=== PATIENT | male | born 1960 | race Caucasian/White ===

== ENCOUNTER → 2019-01-19 | Day surgery (SDC) | payer OTHER ==
[~2019-01-19] MED LIST: ALLERGY SHOT; AMBIEN CR12.5 MG PO; AMBIEN10 MG PO; AMBIEN5 MG PO; CENTRUM SILVER1 EAC3 PO; DUEXIS 800-26.1 EACH PO; ESIDRIX25 MG PO; FENTANYL CITRATE/PF 100MCG/2 ML INJ ONE; FIBER PO; FUROSEMIDE40 MG PO; GLUCOSAMINE &1 EAC1 PO; HYOSCYAMINE 0.125 MG TAB ONE; Hydrochlorothiazide PO; KEFLEX500 MG PO; LISINOPRIL40 MG PO; MELOXICAM15 MG PO; MELOXICAM7.5 MG PO; METFORMIN HCL500 MG PO; MIDAZOLAM HCL 2 MG/2 ML VIAL ONE; PROBIOTIC & AC1 EACH PO; PROPOFOL IV EMULSION 10 MG/ML 50 ML VIAL ONE; PROTONIX20 MG PO; RANITIDINE HCL300 M1 PO; ROSUVASTATIN PO; SAW PALMETTO PO; SAW PALMETTO450 MG PO; ZANTAC300 MG PO; ZESTRIL20 MG PO; ZINC50 M1 PO; [UNRECOGNIZED DRUG - OTHER] PO; [UNRECOGNIZED DRUG - OTHER] PO; [UNRECOGNIZED DRUG - OTHER] PO
--- OUTSIDE RECORDS SUMMARY | 2019-01-19 08:04 | XMS REPORT | Clinical Summary ---
Author Author [facility] Organization [facility] Address Unknown Phone Unavailable Care Team Providers Care English Drawer Name Role Phone Jina Seymour MD PCP Allergies No Known Allergies Medications End Date Status Medication Sig Dispensed Refills Start Date Active zolpidem CR (AMBIEN CR) 0 12.5 MG CR tablet 9 Active rosuvastatin (CRESTOR) 5 Take 5 mg by 3 MG tablet mouth daily. 9 Active potassium chloride 0 (K-DUR) 20 MEQ CR tablet 9 Active pantoprazole (PROTONIX) 0 40 MG EC tablet 9 Active metoprolol tartrate 0 (LOPRESSOR) 50 mg tablet 9 Active metFORMIN (GLUCOPHAGE) Take 500 mg 3 500 mg tablet by mouth 2 9 (two) times a day. Active meloxicam (MOBIC) 15 mg 0 tablet 9 Active lisinopril 0 (PRINIVIL,ZESTRIL) 20 mg 9 tablet Active hydroCHLOROthiazide 0 (HYDRODIURIL) 25 MG 9 tablet Active furosemide (LASIX) 40 mg 0 tablet 9 Active DYMISTA 137-50 mcg/spray SPRAY 1 SPRAY 3 spray,non-aerosol EACH NOSTRIL 9 TWICE A DAY 12/27/2018 Discontinued fluticasone propionate 0 (FLONASE) 50 9 mcg/actuation nasal spray Active Problems Problem Noted Date Impingement syndrome of right shoulder 12/27/2018 Encounters Care Team Description Date Type Specialty Jonathan Quinn PA-C 01/11/2019 Telephone Orthopedic Surgery Chevy Diaz MD Impingement syndrome of right shoulder (Primary Dx); Pain 12/27/2018 Office Visit Orthopedic Surgery after 01/18/2018 Social History Date Tobacco Use Types Packs/Day Years Used Never Smoker Smokeless Tobacco: Never Used Alcohol Use Drinks/Week oz/Week Comments Never Alcohol Habits Answer Date Recorded How often do you have a drink containing alcohol? Never 12/27/2018 How many drinks containing alcohol do you have on Not asked a typical day when you are drinking? How often do you have six or more drinks on one Not asked occasion? Sex Assigned at Date Recorded Not on file Industry Job Start Date Occupation Not on file Not on file Not on file Travel End Travel History Travel Start No recent travel history available. Last Filed Vital Signs Time Taken Vital Sign Reading - Blood Pressure - - Pulse - - Temperature - - Respiratory Rate - - Oxygen Saturation - - Inhaled Oxygen - Concentration 12/27/2018 2:09 PM CDT Weight 113 kg (250 lb) 12/27/2018 2:09 PM CDT Height 193 cm (6' 4") 12/27/2018 2:09 PM CDT Body Mass Index 30.43 Plan of Treatment Health Maintenance Due Date Last Done Comments COLONOSCOPY SCREENING 2010 SHINGLES VACCINES (#1) 2010 INFLUENZA VACCINE 02/03/2019 Procedures Comments Procedure Name Priority Date/Time Associated Diagnosis MRI SHOULDER WO CONTRAST Routine 01/07/2019 Impingement syndrome of RIGHT 6:15 PM CDT right shoulder XR SHOULDER 2+ VW RIGHT Routine 12/27/2018 Pain 3:03 PM CDT after 01/18/2018 Results * MRI Shoulder Wo Contrast Right (01/07/2019 6:15 PM CDT) Specimen Narrative Performed At [facility] EXAMINATION:MRI SHOULDER WO CONTRAST RIGHT CLINICAL HISTORY:M75.41 Impingement syndrome of right shoulder, Shoulder painrotator cuff tear impingement suspected TECHNIQUE:Multiplanar multisequence MR imaging of the shoulder was performed without contrast. COMPARISON:X-rays dated 12/27/2018 FINDINGS: 1. Rotator cuff: Minimal calcific tendinitis of the rotator cuff is noted. There is a small closed interstitial delaminating tear of the posterior status tendon best seen on series 6 image 13 at the tuberosity footprint low-grade tendinosis of the superior fibers subscapularis tendon. Teres minor tendon intact. No rotator cuff muscle atrophy, edema or strains. 2. Bursa: No subacromail/subdeltoid bursitis. 3. Biceps tendon: Mild tendinosis of the junction of the horizontal and vertical segments of the biceps tendon. 4. Labrum: Chronic superior labral tear best seen on series 6 images 12 and 13 posterior to the biceps anchor. There is rounding and deformity of the posterior glenoid with posterior labral enlargement that may represent a dysplastic glenoid and compensatory hypertrophy or the sequelae of old trauma. Increased glenoid retroversion. Chronic anterior and for labral tear with small para labral cysts best seen on series 4 images 21 through 26. Moderate thickening of the anterior band and axillary pouch likely stress hypertrophy. 5. AC joint: Intact. 6. Glenohumeral joint: Increased glenoid retroversion with flattening and posterior downsloping of the posterior glenoid that may be secondary to glenoid dysplasia or sequelae of old trauma in the distant past. Posterior decentering of the humeral head. Correlate for posterior instability. 7. Articular cartilage: Articular cartilage intact. 8. Joint Fluid:No joint effusion. Physiologic joint fluid. 9. Bone marrow: Small interosseous ganglion cysts in the bicipital groove and posterior greater tuberosity. Subtle edema lesser tuberosity at the insertion of the subscapularis tendon. This can be associated with subscapularis impingement. 10. Soft tissues: No mass, fluid collection or hematoma. IMPRESSION: 1. 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 2.Posterior decentering of the humeral head. Correlate for posterior instability. Prominent thickening of the anterior band of the inferior glenohumeral ligament and axillary pouch likely stress hypertrophy. 3.Chronic SLAP tear and chronic tear of the anterior inferior labrum with small para labral cysts. 4.Minimal calcific tendinitis of the rotator cuff. Small closed interstitial delaminating tear at the tuberosity footprint. No full-thickness rotator cuff tears. 5.Mild intra-articular biceps tendinosis. [facility]-[id number] Procedure Note [facility], Radiology Results - 01/07/2019 6:53 PM CDT EXAMINATION: MRI SHOULDER WO CONTRAST RIGHT CLINICAL HISTORY: M75.41 Impingement syndrome of right shoulder, Shoulder pain rotator cuff tear impingement suspected TECHNIQUE: Multiplanar multisequence MR imaging of the shoulder was performed without contrast. COMPARISON: X-rays dated 12/27/2018 FINDINGS: 1. Rotator cuff: Minimal calcific tendinitis of the rotator cuff is noted. There is a small closed interstitial delaminating tear of the posterior status tendon best seen on series 6 image 13 at the tuberosity footprint low-grade tendinosis of the superior fibers subscapularis tendon. Teres minor tendon intact. No rotator cuff muscle atrophy, edema or strains. 2. Bursa: No subacromail/subdeltoid bursitis. 3. Biceps tendon: Mild tendinosis of the junction of the horizontal and vertical segments of the biceps tendon. 4. Labrum: Chronic superior labral tear best seen on series 6 images 12 and 13 posterior to the biceps anchor. There is rounding and deformity of the posterior glenoid with posterior labral enlargement that may represent a dysplastic glenoid and compensatory hypertrophy or the sequelae of old trauma. Increased glenoid retroversion. Chronic anterior and for labral tear with small para labral cysts best seen on series 4 images 21 through 26. Moderate thickening of the anterior band and axillary pouch likely stress hypertrophy. 5. AC joint: Intact. 6. Glenohumeral joint: Increased glenoid retroversion with flattening and posterior downsloping of the posterior glenoid that may be secondary to glenoid dysplasia or sequelae of old trauma in the distant past. Posterior decentering of the humeral head. Correlate for posterior instability. 7. Articular cartilage: Articular cartilage intact. 8. Joint Fluid:No joint effusion. Physiologic joint fluid. 9. Bone marrow: Small interosseous ganglion cysts in the bicipital groove and posterior greater tuberosity. Subtle edema lesser tuberosity at the insertion of the subscapularis tendon. This can be associated with subscapularis impingement. 10. Soft tissues: No mass, fluid collection or hematoma. IMPRESSION: 1. 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 2. Posterior decentering of the humeral head. Correlate for posterior instability. Prominent thickening of the anterior band of the inferior glenohumeral ligament and axillary pouch likely stress hypertrophy. 3. Chronic SLAP tear and chronic tear of the anterior inferior labrum with small para labral cysts. 4. Minimal calcific tendinitis of the rotator cuff. Small closed interstitial delaminating tear at the tuberosity footprint. No full-thickness rotator cuff tears. 5. Mild intra-articular biceps tendinosis. [facility]-[id number] Performing Organization Address City/State/Zipcode Phone Number [facility] [address] [place] [address] * XR Shoulder 2+ Vw Right (12/27/2018 3:03 PM CDT) Specimen Narrative Performed At [facility] 3 views today reviewed with the patient show a type II and a half acromium, slight flattening of the posterior glenoid, no significant spur formation on the glenohumeral joint. Performing Organization Address City/State/Zipcode Phone Number [facility] [address] [place] [address] after 01/18/2018 Insurance Type Payer Benefit Subscriber ID Effective Phone Address Plan / Dates Group HMO/PPO [facility] xxxxxxxxx [id number] THCARE resent CHOICE/CHO ICE + Advance Directives Patient has advance care planning documents on file. For more information, murali e contact: Sriram Guillen [address] [place] [address]
[2019-01-19 12:15] VITALS: BP 124/50
--- NOTE | 2019-01-19 12:31 | Operative Report ---
DATE OF PROCEDURE: 01/19/2019 SURGEON: Jonathan Seymour MD PROCEDURES: 1. Esophagogastroduodenoscopy with biopsies. 2. Colonoscopy with polypectomy. INDICATION FOR EGD: Acid reflux. INDICATIONS FOR COLONOSCOPY: Surveillance colonoscopy, personal history of colon polyps. MEDICATION: The patient was done under MAC, please see anesthesiologist's note. PROCEDURE IN DETAIL: With the patient in left lateral decubitus position, a flexible fiberoptic Olympus gastroscope was introduced into the esophagus under direct visualization without any difficulty. There was some patchy erythema noted in the distal esophagus. The scope was then advanced with ease into the stomach. Mucosa overlying the antrum and the body revealed some diffuse intense erythema and moderate edema, and biopsies were obtained and sent to stain for H pylori. The pylorus was of normal contour and shape, it was intubated with ease and the scope was advanced all the way to the second portion of the duodenum. The scope was then withdrawn slowly. Mucosa overlying the proximal second portion and the duodenal bulb, they were grossly within normal limits and biopsies were obtained to rule out sprue. The scope was then withdrawn back into the stomach and retroflexed and mucosa overlying the fundus and the cardia appeared to be within normal limits. The scope was then straightened out, it was subsequently withdrawn. The patient tolerated the procedure well. IMPRESSION: 1. Distal esophagitis, mild. 2. Gastritis, biopsied, biopsies sent to stain for Helicobacter pylori. 3. Rule out sprue. PLAN: Follow up histology. Initiate Protonix 40 mg one p.o. q.a.m. a.c. The patient was then turned around and after adequate lubrication of the anal canal, a flexible fiberoptic Olympus colonoscope was inserted into the rectum with ease and advanced all the way to the cecum. It was then withdrawn slowly, mucosa overlying the cecum, ascending colon, and transverse colon appeared to be within normal limits. One polyp was hot biopsied from the descending colon. The sigmoid appeared to be within normal limits. One polyp was hot biopsied from the rectum. The scope was then retroflexed into the distal rectum and small internal hemorrhoids were noted, none of which was actively bleeding. The scope was then straightened out, it was subsequently withdrawn. The patient tolerated the procedure well. IMPRESSION: 1. Descending colon polyp, hot biopsied. 2. Rectal polyp, hot biopsied. 3. Internal hemorrhoids, none actively bleeding. PLAN: Followup histology. Initiate high-fiber, low-fat diet. Initiate high-fiber supplement. The patient might benefit from a followup colonoscopy in 5 years. MD KEITH Thurman/WILFRED /[id number] cc: Ravi Seymour MD
== END | disposition home or self-care (01) ==
LOC: OR 07:55
PROVIDERS: ATTEND Internal Medicine Gastroenterology
DX: Z12.11 Encounter for screening for malignant neoplasm of colon (principal); K63.5 Polyp of colon; K62.1 Rectal polyp; K29.50 Unspecified chronic gastritis without bleeding; K20.9 Esophagitis, unspecified; K21.9 Gastro-esophageal reflux disease without esophagitis; L29.0 Pruritus ani; K58.9 Irritable bowel syndrome, unspecified; K64.8 Other hemorrhoids; E11.9 Type 2 diabetes mellitus without complications; I10 Essential (primary) hypertension; R49.9 Unspecified voice and resonance disorder; R42 Dizziness and giddiness; G47.33 Obstructive sleep apnea (adult) (pediatric); E78.5 Hyperlipidemia, unspecified; F95.9 Tic disorder, unspecified; I45.10 Unspecified right bundle-branch block; Z01.810 Encounter for preprocedural cardiovascular examination; Z79.84 Long term (current) use of oral hypoglycemic drugs; Z68.41 Body mass index [BMI] 40.0-44.9, adult
CPT/HCPCS: 36415; 43239; 45384; 82948; 93005; J2250; J2704; J3010

== ENCOUNTER 2019-12-29 06:24 | Observation (INO) | payer OTHER ==
[2019-12-26 13:19] LABS: ALANINE AMINOTRANSFERASE 26 IU/L (0-55); ALBUMIN 3.9 g/dL (3.5-5.0); ALBUMIN/GLOBULIN RATIO 1.2 (0.8-2.0); ALKALINE PHOSPHATASE 61 IU/L (40-150); ANION GAP 10.6 mmol/L (8-16); BASOPHILS % 0.4 % (0.0-1.0); BLOOD UREA NITROGEN 20 mg/dL (7-26); BUN/CREATININE RATIO 21 (6-25); CALCIUM 9.6 mg/dL (8.4-10.2); CARBON DIOXIDE 30 mmol/L (22-29); CHLORIDE 107 mmol/L (98-107); CREATININE, SERUM 0.95 mg/dL (0.72-1.25); EOSINOPHILS # (AUTO) 0.2 (0.0-0.4); EOSINOPHILS % 3.5 % (0.0-6.0); EST GLOMERULAR FILTRATION RATE > 60 ML/MIN (60-); GLUCOSE 164 mg/dL (74-118); HEMATOCRIT 47.1 % (38.2-49.6); HEMOGLOBIN 15.4 g/dL (14.0-18.0); LYMPHOCYTES # (AUTO) 1.6 (1.0-3.2); LYMPHOCYTES % 28.7 % (18.0-39.1); MEAN CORPUSCULAR HEMOGLOBIN 30.6 pg (28-32); MEAN CORPUSCULAR HGB CONC 32.7 g/dL (31-35); MEAN CORPUSCULAR VOLUME 93.6 fL (81-99); MONOCYTES # (AUTO) 0.6 (0.2-0.8); MONOCYTES % 10.9 % (4.4-11.3); NEUTROPHILS % 56.3 % (38.7-80.0); PLATELET COUNT 277 x10e3/uL (140-360); POTASSIUM 4.6 mmol/L (3.5-5.1); RED BLOOD COUNT 5.03 x10e6/uL (4.3-5.7); RED CELL DISTRIBUTION WIDTH 12.8 % (11.7-14.4); SODIUM 143 mmol/L (136-145)
--- NOTE | 2019-12-26 13:29 | Diagnostic Imaging Report ---
X-ray chest PA and lateral Comparison: 04/16/2015 History: Preop Findings: Central airways unremarkable. Cardiomediastinal silhouette is normal. No pleural effusion. No pneumothorax. No focal lung disease. Visualized skeletal structures unremarkable. Upper abdomen unremarkable. Impression: Normal exam. Signed by: Murphy Glass MD on 12/26/2019 1:26 PM
[~2019-12-29] VITALS: Ht 193 cm; Wt 125.2 kg
[~2019-12-29 06:24] MED LIST changes: +ATORVASTATIN CA10 MG PO; -FENTANYL CITRATE/PF 100MCG/2 ML INJ ONE; -HYOSCYAMINE 0.125 MG TAB ONE; -MIDAZOLAM HCL 2 MG/2 ML VIAL ONE; -PROPOFOL IV EMULSION 10 MG/ML 50 ML VIAL ONE
[2019-12-29] MEDS ORDERED: CEFAZOLIN SOD 1 GM/NS 50ML 100 ML IV ONE (08:10)
[2019-12-29] MEDS ORDERED: IOPAMIDOL 300MG/ML 50ML INFUS..BTL IV ONE (08:41)
[2019-12-29] MEDS ORDERED: B&O 60MG R/S 60 MG SUPP PR ONE (10:31)
[2019-12-29] MEDS ORDERED: FENTANYL CITRATE/PF 100MCG/2 ML INJ ONE ×2 (10:59→19:20)
[2019-12-29] MEDS ORDERED: LISINOPRIL 20 MG TAB PO PRN (12:00)
[2019-12-29] MEDS ORDERED: B&O 60MG R/S 60 MG SUPP PR PRN (12:00)
[2019-12-29] MEDS ORDERED: ZOLPIDEM TARTRATE 10 MG TAB PO PRN (12:00)
[2019-12-29] MEDS ORDERED: DEXTROSE 50% SYRINGE 50 ML IV PRN (12:00)
--- NOTE | 2019-12-29 12:07 | Operative Report ---
DATE OF PROCEDURE: 12/29/2019 SURGEON: Topher Ingram MD PREOPERATIVE DIAGNOSIS: Bladder neck outlet obstruction, benign prostatic hyperplasia. POSTOPERATIVE DIAGNOSIS: Bladder neck outlet obstruction, benign prostatic hyperplasia plus multiple small bladder stone and concretions. ANESTHESIOLOGIST: Andrea Recinos MD ANESTHESIA: General. FINDINGS: The patient had a urethral stenosis deep bulbar dilated to a 28 Marichuy sound. A grade 3 trabeculation of the bladder with cellules and saccules. He had a large middle bar with an intravesical component. Once the intravesical component was cut, it was noted that the patient had small, little tiny stones and concretions present. Electrovaporization of the tissues was removed, as well as a TURP. PROCEDURE IN DETAIL: With the patient under satisfactory general anesthesia, the patient was placed in the supine position on the operating table. Legs were placed on stirrups. Genitalia was then prepped with Betadine soap and solution and draped in usual manner. A 22-Kiswahili cystourethroscope was passed per urethra and stenosis of the deep bulbar urethra was found. The cystoscope was then removed and the dilation of the urethra was done using Marichuy sounds from size 12 to size 28. Cystoscopy was then performed. Findings are dictated above. At this point, the resectoscope was placed in, continuous flow Olympus bipolar energy was used. I used the loop electrode 1st to resect the middle bar and then the posterior tissue to the verumontanum, did not go through with the verumontanum. Lateral tissues were then done much the same way. At this point, I changed over to the button electrode and I electrovaporated the remaining tissue anteriorly and I obtained good hemostasis. At this point, the [email or web address] evacuator was used to remove all prostatic chips from the bladder. I rechecked with the scope the bladder, made sure there were no pieces of tissue or chips of prostate within the bladder itself. There were none. Also observed that the trigone was normal and both ureteral orifices were in normal position. Again, I checked for hemostasis. There were a couple of bleeders of the bladder neck, which I coagulated. At this point, the instruments were removed. A 22-Kiswahili Mehta catheter was passed per urethra and left indwelling in the bladder. I irrigated the bladder till the return was clear. There were no clots. B and O suppository was placed in the rectum. The patient was taken to recovery room in satisfactory condition. DISCHARGE INSTRUCTIONS: The patient was kept overnight for observation. If the patient met discharge criteria next day, he would be sent home on tramadol for pain, Mehta catheter and Keflex antibiotic to take twice daily. He will be seen in my office on followup in 4 days. He was instructed to take all his medications, aspirin, and meloxicam. If the patient had to stay an extra day, a separate discharge summary will be dictated to explain the reason why the patient stayed an extra day. MD BLANCA Campa/[facility] /[id number]
[2019-12-29 12:35] VITALS: BP 120/82
[2019-12-29] MEDS: LACTATED RINGER'S 1,000 ML INJ SCH ×2 (12:49→22:39)
[2019-12-29] MEDS ORDERED: TRAMADOL HCL 50 MG TAB PO PRN (13:00)
[2019-12-29] MEDS: INSULIN REGULAR, HUMAN 100 UNIT/1 ML 3ML VIAL SQ SCH ×2 (16:30→21:00)
[2019-12-29 17:12] VITALS: BP 130/83
[2019-12-29] MEDS: FUROSEMIDE 40 MG TAB PO SCH (18:09)
--- NOTE | 2019-12-29 19:04 | NUR ---
shift report given to oncoming nurse pt in stable condition, denies pain at this time, call light in reach will continue to monitor
[2019-12-29] MEDS ORDERED: MIDAZOLAM HCL 2 MG/2 ML VIAL ONE (19:20)
[2019-12-29] MEDS ORDERED: ACETAMINOPHEN 1000 MG/100 ML IV ONE (19:33)
[2019-12-29] MEDS ORDERED: ETOMIDATE 2 MG/ML 10 ML INJ IV ONE (19:33)
[2019-12-29] MEDS ORDERED: ONDANSETRON HCL INJ 2MG/ML 2ML 2 MG/ML VIAL ONE (19:33)
[2019-12-29] MEDS ORDERED: LIDOCAINE HCL 2% LOCAL INJ 5 ML SDV VIAL INJ ONE (19:33)
[2019-12-29] MEDS ORDERED: DEXAMETHASONE SOD PHOS INJ 4 MG/ML VIAL ONE (19:33)
[2019-12-29] MEDS ORDERED: SEVOFLURANE INHAL SOLN 250 ML PEN BTL ONE (19:33)
[2019-12-29 20:00] VITALS: BP 130/73
[2019-12-29] MEDS ORDERED: ATORVASTATIN 10 MG TAB PO SCH (21:00)
[2019-12-29 21:49] VITALS: BP 130/73
[2019-12-30] VITALS (8 sets, daily range): BP systolic 125–135; BP diastolic 74–86
[2019-12-30] MEDS: LACTATED RINGER'S 1,000 ML INJ SCH ×2 (06:09→15:56)
--- NOTE | 2019-12-30 07:09 | NUR ---
report given to day nurse. patient is resting comfortably in the bed. bed is in the lowest position and call light is within reach.
[2019-12-30] MEDS: INSULIN REGULAR, HUMAN 100 UNIT/1 ML 3ML VIAL SQ SCH ×2 (07:30→11:30)
[2019-12-30] MEDS ORDERED: PANTOPRAZOLE SOD 40 MG TABEC PO SCH (07:30)
[2019-12-30 08:43] LABS: BASOPHILS % 0.2 % (0.0-1.0); EOSINOPHILS # (AUTO) 0.1 (0.0-0.4); EOSINOPHILS % 0.9 % (0.0-6.0); HEMATOCRIT 39.9 % (38.2-49.6); HEMOGLOBIN 13.2 g/dL (14.0-18.0); LYMPHOCYTES # (AUTO) 2.6 (1.0-3.2); LYMPHOCYTES % 26.8 % (18.0-39.1); MEAN CORPUSCULAR HEMOGLOBIN 31.1 pg (28-32); MEAN CORPUSCULAR HGB CONC 33.1 g/dL (31-35); MEAN CORPUSCULAR VOLUME 94.1 fL (81-99); MONOCYTES # (AUTO) 0.8 (0.2-0.8); MONOCYTES % 8.7 % (4.4-11.3); NEUTROPHILS % 63.2 % (38.7-80.0); PLATELET COUNT 258 x10e3/uL (140-360); RED BLOOD COUNT 4.24 x10e6/uL (4.3-5.7); RED CELL DISTRIBUTION WIDTH 12.7 % (11.7-14.4)
[2019-12-30] MEDS: FUROSEMIDE 40 MG TAB PO SCH (09:00)
[2019-12-30] MEDS ORDERED: [UNRECOGNIZED DRUG - OTHER] PO SCH (09:00)
[2019-12-30] MEDS ORDERED: METFORMIN HCL 500 MG TAB PO SCH (09:00)
[2019-12-30 09:06] LABS: ALANINE AMINOTRANSFERASE 20 IU/L (0-55); ALBUMIN 3.5 g/dL (3.5-5.0); ALBUMIN/GLOBULIN RATIO 1.3 (0.8-2.0); ALKALINE PHOSPHATASE 54 IU/L (40-150); BLOOD UREA NITROGEN 19 mg/dL (7-26); BUN/CREATININE RATIO 21 (6-25); CALCIUM 8.7 mg/dL (8.4-10.2); CARBON DIOXIDE 29 mmol/L (22-29); CHLORIDE 103 mmol/L (98-107); CREATININE, SERUM 0.91 mg/dL (0.72-1.25); EST GLOMERULAR FILTRATION RATE > 60 ML/MIN (60-); GLUCOSE 102 mg/dL (74-118); SODIUM 139 mmol/L (136-145)
--- NOTE | 2019-12-30 09:50 | NUR ---
Pt. expressed no spiritual or emotional concerns at this time. Pt's at bedside. [employer] provided hospitality and information on how to reach aquatic ecologist, if needed. No need to follow at this time. VENU SOLIS [facility] Spiritual Care Department O: [phone]
[2019-12-30] MEDS ORDERED: B&O 60MG R/S 60 MG SUPP PR ONE (12:14)
[2019-12-30] MEDS ORDERED: SEVOFLURANE INHAL SOLN 250 ML PEN BTL ONE (13:40)
[2019-12-30] MEDS ORDERED: LIDOCAINE HCL 2% LOCAL INJ 5 ML SDV VIAL INJ ONE (13:40)
[2019-12-30] MEDS ORDERED: ONDANSETRON HCL INJ 2MG/ML 2ML 2 MG/ML VIAL ONE (13:40)
[2019-12-30] MEDS ORDERED: DEXAMETHASONE SOD PHOS INJ 4 MG/ML VIAL ONE (13:40)
[2019-12-30] MEDS ORDERED: PROPOFOL IV EMULSION 10 MG/ML 20 ML VIAL ONE (13:40)
[2019-12-30] MEDS ORDERED: ACETAMINOPHEN 1000 MG/100 ML IV ONE (13:40)
[2019-12-30] MEDS ORDERED: HYDROMORPHONE 1MG/1ML INJ ONE (14:00)
[2019-12-30] MEDS ORDERED: MORPHINE SULFATE INJ 4 MG/ML INJ 1ML ONE (14:22)
[2019-12-30] MEDS ORDERED: DIPHENHYDRAMINE HCL INJ 50 MG/ML VIAL ONE (14:40)
[2019-12-30] MEDS ORDERED: FENTANYL CITRATE/PF 100MCG/2 ML INJ ONE (15:08)
[2019-12-30] MEDS ORDERED: MIDAZOLAM HCL 2 MG/2 ML VIAL ONE (15:08)
[2019-12-30] MEDS ORDERED: KEFLEX500 MG (17:18)
--- NOTE | 2019-12-31 12:00 | Operative Report ---
DATE OF PROCEDURE: 12/30/2019 SURGEON: Topher Ingram MD PREOPERATIVE DIAGNOSIS: Retained clots, status post TURP with prostatic bleeding. POSTOPERATIVE DIAGNOSES: Retained clots, status post TURP with prostatic bleeding. Single arterial bleed on posterior capsular wall of the prostate near bladder neck. OPERATION PERFORMED: Cystoscopy, evacuation of clots, and plasma-button coagulation of the prostatic bleeders. ANESTHESIOLOGIST: Andrea Recinos MD FINDINGS: The patient had a large amount of clots in the bladder and in the prostatic fossa, which were evacuated using the Conchita syringe. Single vessel bleeder was identified, it was coagulated satisfactorily. The bleeding stops. PROCEDURE IN DETAIL: With the patient under satisfactory general anesthesia, the patient was placed in the supine position on the operating table. At that point, a time-out was obtained and the legs were placed on stirrups and the patient was prepped and draped in the usual manner. A 22-Malagasy cystourethroscope was passed per urethra into the bladder. Previous site of urethral dilatation was seen. The patient at this point had the instruments removed and replaced with a continuous-flow resectoscope. The resectoscope as was a 28-Malagasy and therefore, larger lumen to be able to remove the clot satisfactorily. Using the Conchita syringe, shoulder clots were removed from the bladder. The resectoscope with a loop electrode was placed in and with this instrument I was able to tease all of the remaining clots from the prostatic fossa. The bleeder was found without any incidents. The instruments were exchanged from a loop to the button electrode and fulguration of the arterial bleed was done. After that, I fulgurated the area surrounding the arterial bleed and there have been no other bleeders. I removed the instrument and replaced the instrument with a 22-Malagasy 30 mL balloon catheter, which was introduced without any difficulty. The balloon was inflated. Irrigation was done, the return was totally clear. B and O suppository were placed in the rectum at this time, and the patient was taken to the recovery room in satisfactory condition. Topher Ingram MD RRG/MOD[facility] /[id number]
--- NOTE | 2019-12-31 12:05 | Discharge Summary ---
REASON FOR ADMISSION: Benign prostatic hyperplasia, urethral strictures. FINAL DIAGNOSES: Pending pathological report, benign prostatic hyperplasia, and urethral stricture. HISTORY: A 59-year-old male evaluated in the office for the last two years. Finally, the symptomatology was imposed to the patient by the prostate causes him to make that determination that he wanted to have an operation. He has had a urethral stricture, which was diagnosed years ago, and I have been dilating it sequentially in the office every 4 to 8 months depending on his symptomatology. The last visit in the office, the patient had a voiding flow test, which showed severe obstruction and now a postvoid residual and that was after a urethral dilatation was performed. The patient did not see any change at this point dilating the urethra. The patient was brought to the hospital, went to surgery. Surgery went uneventful. Unfortunately, postoperatively the patient developed a bleeder, that needed to return to the operating room for coagulation. Once the coagulation was done, the patient was sent home. The original surgery was done on the . The second surgery was done on the and he was discharged on the in the afternoon. I return to see the patient the afternoon of the . His urine was completely clear. He had no nausea or vomiting. He had tolerated diet and I told him that I felt that he was indeed ready to be discharged. I gave the patient my cell number, told him that there was any problem to give me a call. The patient was given [place] for pain. Since I return twice and fulgurated twice, the patient would have some more bladder spasms done, which is one surgery; therefore, I felt that [place] was indicated. I also gave him Keflex 500 mg, told him to have take all his medications except aspirin and meloxicam, and I told him he could have regular diet. He was given a leg bag and overnight bag, and he will be seen in my office on Thursday morning to remove the Mehta catheter. MD ZARI CampaG/MODL /[id number]
--- NOTE | 2019-12-31 14:36 | Progress Note ---
DATE: 12/30/2019 SUBJECTIVE: On 12/30/2019 at 7:30 a.m. in the morning, the patient is lying in his room, doing well. Unfortunately, the urine is very dark. I was told by the nurse that they had just irrigated the catheter free of clots at 6 o'clock in the morning. At 7 when I walked in, the urine was dark. I discussed with the patient the problem and proceeded to irrigate, again large amount of clots. After talking to the patient, I told him that if I at this point looked at the urine that I felt that it was best to take a 2nd look inside the bladder. I told him that there will probably be one or two bleeders that were causing this problem and since he has been bleeding since the previous evening that this was not going to stop. The patient agreed with that assessment. I went to the nurse and asked for a CBC and a CMP, which we will be doing to make sure that we went back to the operating room at optimal condition. So at this point, I talked to the patient about the permit, obtained informed permit by me. I will re-evaluate him again when the operating room time is available, but I do believe that we will have to take the patient back to surgery to stop the bleeding. Thank you very much. MD BLANCA Campa/MODL /[id number]
== END 2019-12-30 17:55 | disposition home or self-care (01) ==
LOC: OR 06:24 → PACU V 10:55 → MED/SURG 11:20
PROVIDERS: ADMIT Urology; ATTEND Urology
DX: N40.0 Benign prostatic hyperplasia without lower urinary tract symptoms (principal); N35.912 Unspecified bulbous urethral stricture, male; E11.9 Type 2 diabetes mellitus without complications; N32.0 Bladder-neck obstruction; N21.0 Calculus in bladder; I10 Essential (primary) hypertension; M19.90 Unspecified osteoarthritis, unspecified site; Z80.3 Family history of malignant neoplasm of breast; Z83.3 Family history of diabetes mellitus; Z82.49 Family history of ischemic heart disease and other diseases of the circulatory system; Z87.898 Personal history of other specified conditions; N34.2 Other urethritis; Z79.84 Long term (current) use of oral hypoglycemic drugs; Z11.59 Encounter for screening for other viral diseases
CPT/HCPCS: 36415 ×3; 52214; 52601; 71046; 80053 ×2; 82948 ×2; 85025 ×2; 87635; 88305; 93005; G0378 ×2; J0131 ×2; J0690; J1100 ×2; J1170; J1200; J1817; J2001 ×2; J2250 ×2; J2270; J2405 ×2; J2704; J3010 ×2; J7121 ×2; S0164